=== PATIENT | female | born 1995 | race American Indian/Alaskan Native ===

== ENCOUNTER 2020-08-14 10:21 | Emergency (ER) | payer SELFPAY ==
[2020-08-14 10:39] VITALS: BP 112/70
--- NOTE | 2020-08-14 12:15 | Emergency Department Report ---
ED Fall HPI - General Chief Complaint: Fall Stated Complaint: FLANK PAIN/RT BREAST PAIN Source: patient Mode of arrival: Ambulatory - History of Present Illness Initial Comments: 25-year-old -Congol[place] female presents to the emergency room right breast pain and chest after having a fall while getting out of her tub on Monday. Patient also complains of lower abdominal pain for the that radiates to her back for the last 1.3 weeks. Patient states her last menstrual period was 5-21. Patient states that her period only lasted 3 days. She states that she did try taking a test in the lab was very faint but did not complete. Patient is concerned for possible . MD Complaint: fall - Related Data Allergies Allergy/AdvReac Type Severity Reaction Status Date / Time No Known Allergies Allergy Unverified 08/14/20 10:33 ED Review of Systems ROS: Stated complaint: FLANK PAIN/RT BREAST PAIN Other details as noted in HPI ED Past Medical Hx - Past Medical History Previous Medical History?: No - Surgical History Past Surgical History?: No ED Physical Exam - General Limitations: No Limitations General appearance: alert, in no apparent distress - Head Head exam: Present: atraumatic, normocephalic - Eye Eye exam: Present: normal appearance - ENT ENT exam: Present: mucous membranes moist - Neck Neck exam: Present: normal inspection - Respiratory Respiratory exam: Present: normal lung sounds bilaterally, chest wall tenderness, other (Small ecchymotic area of the right breast tenderness to palpate). Absent: respiratory distress - Cardiovascular Cardiovascular Exam: Present: regular rate, normal rhythm. Absent: systolic murmur, diastolic murmur, rubs, gallop - GI/Abdominal GI/Abdominal exam: Present: soft, normal bowel sounds - Extremities Exam Extremities exam: Present: normal inspection - Back Exam Back exam: Present: normal inspection - Neurological Exam Neurological exam: Present: alert, oriented X3 - Psychiatric Psychiatric exam: Present: normal affect, normal mood - Skin Skin exam: Present: warm, dry, intact, normal color. Absent: rash ED Course Vital Signs 08/14/20 10:31 Temperature 98.5 F Pulse Rate 72 Respiratory 17 Rate Blood Pressure 112/70 [Right] O2 Sat by Pulse 100 Oximetry ED Medical Decision Making - Radiology Data Radiology results: report reviewed [facility] [address] [place] [address] XRay Report Signed Patient: ANNIA TRONCOSO MR#: [id number] : 1995 Acct:[id number] Age/Sex: 25 / F ADM Date: 08/14/20 Loc: ED Attending Dr: Ordering Physician: DIANA TURNER Date of Service: 08/14/20 Procedure(s): XR ribs UNI w PA Chest 3+V RT Accession Number(s): [id number] cc: DIANA TURNER Fluoro Time In Minutes: Chest and ribs INDICATION: Right-sided pain FINDINGS: Heart size appears normal. No pneumothorax. No displaced rib fracture is seen. Signer Name: Eric Echols MD Signed: 08/14/2020 2:11 PM Workstation Name: [id number] Transcribed By: AMNA Dictated By: LOWELL ECHOLS MD Electronically Authenticated By: LOWELL ECHOLS MD Signed Date/Time: 08/14/20 141 DD/ 09 TD/TT: Print Cancel - Medical Decision Making 25-year-old -Congol[place] female presents to the emergency room right breast pain and chest after having a fall while getting out of her tub on Monday. Patient also complains of lower abdominal pain for the that radiates to her back for the last 1.3 weeks. Patient states her last menstrual period was 5-21. Patient states that her period only lasted 3 days. She states that she did try taking a test in the lab was very faint but did not complete. Patient is concerned for possible . Serum hCG, urinalysis, x-ray right ribs and chest x-ray as patient has right side rib pain chest pain and pleurisy. X-rays negative for any abnormalities no displaced fractures. test is negative. Patient is to take ibuprofen or Tylenol for pain management. Follow-up with your primary care provider. Critical care attestation.: If time is entered above; I have spent that time in minutes in the direct care of this critically ill patient, excluding procedure time. ED Disposition Clinical Impression: Fall, Traumatic ecchymosis of female breast, Chest wall tenderness, Negative test Disposition: TO HOME OR SELFCARE Is pt being admited?: No Does the pt Need Aspirin: No Condition: Stable Instructions: Chest Wall Pain, [id number] Additional Instructions: Negative test chest x-ray with rib x-ray is negative for any fractures or abnormalities. Tylenol or ibuprofen as needed for pain. Ice on the bruise of your breast. Follow-up with a primary care provider. Referrals: PRIMARY CARE, [Primary Care Provider] - 3-5 Days [facility] [Provider Group] - 3-5 Days Forms: Work/School Release Form(ED)
[2020-08-14 13:37] LABS: HCG Qualitative,Urine Negative (Negative)
--- NOTE | 2020-08-14 14:15 | XRay Report ---
Chest and ribs INDICATION: Right-sided pain FINDINGS: Heart size appears normal. No pneumothorax. No displaced rib fracture is seen. Signer Name: Eric Echols MD Signed: 08/14/2020 2:11 PM Workstation Name: [id number]
== END 2020-08-14 14:52 | disposition home or self-care (01) ==
LOC: ED 10:21
DX: S20.01XA Contusion of right breast, initial encounter (principal); R07.89 Other chest pain; Z32.02 Encounter for pregnancy test, result negative; W17.89XA Other fall from one level to another, initial encounter; Y93.89 Activity, other specified; Y92.89 Other specified places as the place of occurrence of the external cause; Y99.8 Other external cause status
CPT/HCPCS: 36415; 81025; 84702